=== PATIENT | male | born 1970 | race Caucasian/White ===

== ENCOUNTER → 2023-04-06 | Outpatient (CLI) | payer OTHER, SELFPAY ==
--- NOTE | 2023-04-06 13:41 | VDLE_ITS ---
Reason For Study: RLE R/O DVT RIGHT LEFT GSV is normal. CFV is compressible, spontaneous, phasic, CFV is compressible, spontaneous, phasic, competent, and demonstrates normal competent and demonstrates normal augmentation. augmentation. FV is compressible, spontaneous, phasic, competent and demonstrates normal augmentation. POP V is compressible, spontaneous, phasic, competent and demonstrates normal augmentation. T/P Trunk is compressible. PTV is compressible. RT PerV is compressible. Procedure This is a venous duplex using B-mode, color flow and spectral Doppler. Exam performed in department. The exam was diagnostic. A preliminary report was called and/or faxed to SIMIN BRICE office. VL/Venous Duplex US, Unilateral Interpretation Summary There is no evidence of right lower extremity deep vein thrombosis. Right great saphenous vein appears patent and compressible segmentally. Normal flow patterns left common f emoral vein Ordering Physician: Ariel Brice Referring Physician: Ariel Brice Performed By: Leander Hoyt RVT
== END | disposition home or self-care (01) ==
PROVIDERS: PCP Nurse Practitioner Family; Referring Provider Nurse Practitioner Family; Visit Provider Nurse Practitioner Family
DX: M79.89 Other specified soft tissue disorders (principal)
CPT/HCPCS: 93971

== ENCOUNTER 2023-06-03 05:58 | Day surgery (SDC) | payer OTHER, SELFPAY ==
[2023-06-03] MEDS: Lactated Ringers 1,000 ML 15 ML IV (06:25)
[2023-06-03 06:31] VITALS: BP 128/77; PULSE 84; RESP 18; TEMP 36.6; O2SAT 96; BMI 30.4
--- NOTE | 2023-06-03 06:47 | PCM.HP.STD ---
HPI - General HPI Narrative JEWELS HEDRICK, is a 53 M who presents for right knee arthroscopy partial medial meniscectomy and chondroplasty. no changes to h and p. Ok to proceed. narcotic counselling, rab. right knee marked. no further questions. MR#: [id number] Acct: [id number] Name: JEWELS HEDRICK Rep #: [id number] : 1970 Provider: Dr. Sushil Reyes MD Age/Sex: 53/M [place] [facility] [place] Status: Signed Intake Vital Signs 05/05/2314:12 Height 5 ft 7 in Weight: 200 lb BMI 31.3 Intake Visit Reasons: RIGHT LEG Chief Complaint: right knee Accompanied by: Is patient in pain?: Yes Pain scale (1-10): 3 Allergies No Known Allergies Allergy (Unverified 05/05/23 14:13) Medications lisinopril 20 mg-hydrochlorothiazide 25 mg tablet tab PO 05/05/23 [History Confirmed 05/05/23] meloxicam 15 mg tablet mg PO 05/05/23 [History Confirmed 05/05/23] metformin 1,000 mg tablet mg PO 05/05/23 [History Confirmed 05/05/23] sildenafil (pulm.hypertension) 20 mg tablet mg PO 05/05/23 [History Confirmed 05/05/23] simvastatin 40 mg tablet mg PO 05/05/23 [History Confirmed 05/05/23] tirzepatide 5 mg/0.5 mL subcutaneous pen injector (Mounjaro) mg subcut 05/05/23 [History Confirmed 05/05/23] PFSH Medical History (Updated 05/05/23 @ 14:37 by Sushil Reyes MD) Osteoarthritis of right knee Tear of medial meniscus of right knee Social History (Updated 05/05/23 @ 14:14 by María Burt) Smoking Status: Current every day smoker tobacco type: cigarettes Years smoked: 20 alcohol intake: current alcohol intake frequency: a few times a month HPI RIGHT LEG Details: This documentation accurately reflects the service provided and the decisions made by me, Dr. Sushil Reyes MD 05/05/23 1412. Part of today?s visit was documented by [ ], acting as scribe. JEWELS HEDRICK is a 53 year old M here today for january riding side by sides, felt 'something' so [facility] did a cortisone injection, then the next day putting shorts on and heard a pop so had an MRI and an ekg and high a1c.on felicia now. now onto 8.4. here with his . was going to have an knee arthroscopy - wanted to wait until his a1c was 7.5. right knee. no problems before this. aches once in a while. painful on the medial side. somewhat superiorly. tried meloxicam that seemed to help. once a day. no help with the cortisone injection - twisted. mri was back in february. had injection then the mri. mri was after the twisting injury. 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 Ortho Exam General General: Yes no acute distress Neurologic: Yes alert and Yes oriented x3 Psychologic: Yes reasonable and appropriate Right Knee Skin/Wound: Yes CDI, No erythema, No ecchymosis and No swelling Knee ROM: Yes ROM-Flexion 0-140 Examination: Yes Med jt line tenderness, No Lat jt line tenderness, No TTP inf pole patella, No Crepitus, Yes Pain with flexion, No Pain with extention, Yes Viri's Test, No TTP Patellar tendon, No TTP Tibial tubercle, No TTP Pes Anserine and No Illiotibial band tenderness Quad Atrophy: No Stability: NML: Anterior Drawer, NML: Sobeida, NML: Posterior Drawer, NML: Valgus 0, NML: Valgus 30, NML: Varus 0 and NML: Varus 30 Patella Translation: 2 Apprehension with Lateral Translation: No Patellar Tilt Normal: Yes Patella Grind: No KNEE: slight varus alignment, normal gait, nvi, no hip pain, no effusion. Left Knee Patella Translation: 2 Supplemental Info I reviewed the MRI and x-rays personally. Agree with the report. The conclusion from the radiologist from the MRI taken 03/23/2023 conclusion 1. Complex detached medial meniscus tear with a dominant trizonal radial component at the posterior horn and moderate extrusion. 2. Full-thickness cartilage loss along the lateral trochlea with penetrating chondral erosion. 3. Area of full-thickness cartilage loss with osteoedema along the weightbearing medial femoral condyle measuring 8 x 14 mm 4. Grade 1 MCL sprain 5. Small ossified bodies in the anterior joint recess measuring up to 6 mm Coding Level of Care Code Off vis,new,level 3 Diagnoses Tear of medial meniscus of right knee S83.241A Osteoarthritis of right knee M17.11 Assessment and Plan Assessment and Plan (1) Tear of medial meniscus of right knee: Status: Acute Plan: 53-year-old man right knee pain twisting injury MRI evidence of the medial meniscus tear as well as some areas of full-thickness chondral loss on the MRI however the joint space looks well-maintained on the standing radiographs. Patient can try rest ice anti-inflammatories repeat cortisone injections viscosupplementation bracing physical therapy activity modifications doing nothing. The patient is interested in knee surgery. That would be in the form of right knee arthroscopy partial medial meniscectomy and chondroplasty. I did warn the patient that this would not likely help for the symptoms that are coming from the arthritis and may lead to earlier degeneration of the cartilage. Would not likely to be doing any sort of meniscus repair work to repair a root tear since pre existing OA, but may benefit in terms of the medial joint line tenderness and mechanical symptoms from a partial meniscectomy. If this is no help, could consider arthroplasty options. In addition the patient blood glucose is little bit elevated that is coming down with treatment with Mounjaro. No other medical problems besides HTN, but that would increase risks none the less. I did warn the patient that increased blood sugars and diabetes can increase the risk of infection and other complications. He understands and wishes to go ahead with the operation. We will try to do this before the end of the year is his goal. Discussed recovery 2 weeks on crutches and usually 6 weeks for return to full activitiy. Pros and cons risks and benefits were discussed with the patient including but not limited to infection, pain, stiffness, bleeding, damage to surrounding structures, neurovascular injury, recurrence or retear, failure or wear of hardware or fixation, instability, fracture, deep vein thrombosis and pulmonary embolism, anesthetic risks, , patient dissatisfaction, need for further surgery and other risks. Patient understood and wished to proceed with surgery, and signed the informed consent documentation. [facility] Medical History (Updated 05/25/23 @ 13:12 by Cinthia Estevez) Arthritis Diabetes Dietary restriction High cholesterol Hypertension Osteoarthritis of right knee Smoker Tear of medial meniscus of right knee Wears glasses Home Medications lisinopril 20 mg-hydrochlorothiazide 25 mg tablet 1 tab PO DAILY 05/05/23 [History Last Taken Unknown] meloxicam 15 mg tablet 15 mg PO DAILY 05/05/23 [History Last Taken Unknown] metformin 1,000 mg tablet 1,000 mg PO BID 05/05/23 [History Last Taken Unknown] sildenafil (pulm.hypertension) 20 mg tablet 20 mg PO Q24H PRN sexual activity 05/05/23 [History Last Taken Unknown] simvastatin 40 mg tablet 40 mg PO DAILY 05/05/23 [History Last Taken Unknown] tirzepatide 5 mg/0.5 mL subcutaneous pen injector (Mounjaro) 5 mg subcut .QWK 05/05/23 [History Last Taken Unknown] Allergy/AdvReac Type Severity Reaction Status Date / Time No Known Allergies Allergy Verified 06/03/23 06:30 Social History (Updated 05/05/23 @ 14:14 by María Burt) Smoking Status: Current every day smoker tobacco type: cigarettes alcohol intake: current alcohol intake frequency: a few times a month Vital Signs Vital Signs Vital Signs: 06/03/23 06:31 06/03/23 06:31 Temperature 97.8 F Temperature Source Temporal Pulse Rate 84 Respiratory Rate 18 Respiratory Pattern Normal Blood Pressure 128/77 H Blood Pressure Mean 94 Blood Pressure Source Monitor Blood Pressure Position Sitting Blood Pressure Location Right Arm Pulse Ox 96 Oxygen Delivery Method Room Air Weight Weight: 194 lb 0.108 oz Body Mass Index (BMI) 30.4
[2023-06-03 07:01] LABS: Bedside Glucose 175 mg/dL (74-106)
[2023-06-03] MEDS: Cefazolin 2 GM in 0.9% Normal Saline (100mL Bag) 100 ML IV (07:34)
[2023-06-03] MEDS: Epinephrine (1 mg/ml) 1 MG/ML VIAL (08:14)
[2023-06-03] MEDS: Bupivacaine 0.25% 30 ML Vial (08:33)
--- NOTE | 2023-06-03 08:38 | PCM.OPRPT ---
Problems Associated Problem List Diagnoses (1) Osteoarthritis of right knee: (2) Tear of medial meniscus of right knee: Report of Operation Date of Procedure: 06/03/23 Pre-Operative Diagnosis: right knee medial meniscus tear, OA Post-Operative Diagnosis: same Surgery/Procedure Performed:: right knee arthroscopy, partial medial meniscectomy, chondroplasty Surgeon: Sushil Reyes Type of Anesthesia: General and Local Anesthesiologist: Gualberto Lynn Estimated Blood Loss (mL): 25 Description of Procedure: Patient brought to the operating room theater. Placed supine on the table. 2 g IV Ancef administered prior to the start of the procedure. Stress positioner to the patient's right side. All bony prominences padded. General anesthesia induced. SCD on the nonoperative leg. 30 inch tourniquet applied to the right thigh appropriately padded. Lower extremity prepped and draped in the usual sterile fashion allowing over 3 minutes drying time prior to draping. Preoperative timeout performed to confirm the site patient and the surgery. Leg and elevated tourniquet inflated to 250 mmHg. Made standard anterolateral and anteromedial arthroscopy portals. Did a full diagnostic arthroscopy. No loose bodies in the gutters. There is mild synovitis anteriorly at the knee especially anterolaterally. I debrided this there was the calcified bodies that were noted on the MRI that I removed from the anterior lateral joint space. ACL and PCL appeared normal. Cartilage of the undersurface patella grade 1 changes at the area of the trochlea in the mid aspect there was a 2.5 cm x 2.5 cm area of 3-4 grade loss of the cartilage they are debrided to smooth margins. Entered the lateral compartment. There was 1 very small area grade 2 changes medial side of LFC, this is 5 mm x 5 mm otherwise normal cartilage and there was 1 small radial tear at the anterior horn lateral meniscus that again I debrided for removal of about 3% total surface area of the lateral meniscus otherwise lateral meniscus was normal stable to probing. I then entered the medial compartment there was longitudinal areas of full-thickness grade 4 cartilage loss on the femoral side. On the tibial side grade 1-2 changes. As was described on the MRI there is a trizonal radial tear at the posterior horn MM. I debrided this to smooth margins. There is no role for a root tear or [id number] repair given the complex nature of the tear separation of the tear as well as the full-thickness cartilage loss there in that compartment and patient age. Arthroscopy pictures taken and saved throughout the case. Case terminated. Tourniquet let down and hemostasis achieved. Portals closed with 3-0 Monocryl suture. Quarter percent bupivacaine instilled around the portal sites. Wounds cleaned with wet and dry dressing knee thoroughly irrigated. Steri-Strips followed by Adaptic 4 x 4 gauze ABD dressing and Lloyd wrap loosely wrapped around the knee was then placed. Patient woken up from the general anesthetic transferred off the operating table and taken to postanesthetic care unit in stable condition. All sponge needle instrument counts were correct no complications plan to the patient weightbearing as tolerated range of motion as tolerated crutches for 1 to 2 weeks as needed follow-up in the office in 2 days time. cpt 56021?and [id number] Complications none Admit VTE Documentation VTE Present on Admission: No VTE Mechan Device Prophylaxis: SCD's VTE Pharm Prophylaxis ordered?: No Reason prophylaxis not ordered:: Treatment Not Indicated Procedures Musculoskeletal 20xxx-29xxx: Other Procedure See Report
[2023-06-03 08:50] VITALS: BP 108/71; BP 128/77; PULSE 81; RESP 16; TEMP 36.3; O2SAT 96
[2023-06-03 08:55] VITALS: BP 122/78; BP 128/77; PULSE 82; RESP 16; O2SAT 95
--- NOTE | 2023-06-03 08:57 | DCINST_ITS ---
Discharge Instructions Diet Discharge Diet: No restrictions Activity Discharge Activity: Use Crutches Ice area for (Minutes): 10 Weight Bearing Status: Weight bearing as tolerated Keep extremity elevated above heart level: Operative Extremity Dressing / Incision Call your doctor if your incision/area has: Continuous Slow Oozing, Sudden Increased Bleeding, Increased Pain/ Swelling, Increased Redness, Foul Smelling Discharge and Swelling at the incision site Remove Dressing in: leave in place till F/U Follow Up Care Please Follow Up With: Sushil Reyes MD When: 2 days Test Results: Test results from this visit will be discussed in further detail at your follow- up appointment, if applicable. Discharge Plan Admission Attending Provider: Sushil Reyes Primary Care Provider: Ariel Heaton NP Discharge Orders/Prescriptions Prescriptions: New oxycodone-acetaminophen [Endocet] 5-325 mg tablet 1 tab PO Q4H MDD 6 PRN (Reason: pain) 5 Days Qty: 20 0RF No Action Mounjaro 5 mg/0.5 mL pen injector 5 mg subcut .QWK simvastatin 40 mg tablet 40 mg PO DAILY Patient Comments: TAKE 1 TABLET BY MOUTH AT BEDTIME metformin 1,000 mg tablet 1,000 mg PO BID Patient Comments: TAKE 1 TABLET BY MOUTH TWICE DAILY WITH MEALS lisinopril-hydrochlorothiazide 20-25 mg tablet 1 tab PO DAILY sildenafil (pulm.hypertension) 20 mg tablet 20 mg PO Q24H PRN (Reason: sexual activity) Patient Comments: TAKE 1 TABLET BY MOUTH ONCE DAILY NEEDED meloxicam 15 mg tablet 15 mg PO DAILY Referrals / Follow Up: Sushil Reyes MD [Med Staff - Active Staff] - Ariel Heaton NP, [facility] [employer] [Primary Care Provider] - Disposition Disposition (needs filled in before D/C Order can be placed): Home, Self Care
[2023-06-03 09:00] VITALS: BP 103/80; BP 128/77; PULSE 84; RESP 16; O2SAT 96
[2023-06-03 09:07] VITALS: BP 114/64; BP 128/77; PULSE 89; RESP 16; TEMP 36.1; O2SAT 97
[2023-06-03 09:25] LABS: Bedside Glucose 144 mg/dL (74-106)
== END 2023-06-03 09:47 | disposition home or self-care (01) ==
LOC: SDC 06:01 → AC 06:01
PROVIDERS: PCP Nurse Practitioner Family; Referring Provider Orthopaedic Surgery Sports Medicine; Visit Provider Orthopaedic Surgery Sports Medicine
PROC: (CPT 29870; principal; 2023-06-03 07:10)
DX: S83.241A Other tear of medial meniscus, current injury, right knee, initial encounter (principal); E11.9 Type 2 diabetes mellitus without complications; X50.1XXA Overexertion from prolonged static or awkward postures, initial encounter; M17.11 Unilateral primary osteoarthritis, right knee; I10 Essential (primary) hypertension; E78.00 Pure hypercholesterolemia, unspecified; Z79.1 Long term (current) use of non-steroidal anti-inflammatories (NSAID); F17.210 Nicotine dependence, cigarettes, uncomplicated; Z79.84 Long term (current) use of oral hypoglycemic drugs; Z79.899 Other long term (current) drug therapy
CPT/HCPCS: 29881; 01400; 82962; J7120; J2405

== ENCOUNTER 2023-06-17 15:53 | Outpatient (RCR) | payer OTHER, SELFPAY ==
--- NOTE | 2023-06-17 17:32 | HP.PTEVAL ---
Patient's Visit Information Visit Information Visit Information: JEWELS HEDRICK is a 53 year old M referred to Physical Therapy by Dr. Sushil Reyes MD with a diagnosis of UNILATERAL PRIMARY OSTEOARTHRITIS ,RIGHT KNEE , TEAR OF MEDIAL MENISCUS. Date of Evaluation: 06/17/23 Physical Therapist: Paul Avelar PT, Cert MDT, OCS Visit Plan Frequency: 2x /Week Duration: 2-3 WEEKS Plan: PT INTERVETIONS FLEXABLITY HAMSTRINGS /QUADS, STRENGTHENING QUADS/HAMS/HIP ,BIKE AND FUNCTIONAL STRENGTHENING Subjective Subjective: This 53 y/o male presents to physical therapy with s/p arthroscopic knee medial meniscectomy and chondroplasty on Jun 03 at [facility] . Patient d/c to home few days. Patient had MRI showed meniscus tear. Patient seen Dr 06/05 . Doing well . Patient has some DJD medial aspect. RTD 06/18/23. Patient some pain medial knee edema has subsided. Patient aggravating factors extended walking ,some difficulty with steps and have not been squatting kneeling. Denies paresthesia/tingling . Sleeping okay at night. Patient condition affects QOL and function. 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 Pain Right Knee: Pain Intensity (Out of 10): 4 Pain Intensity Range: 10 Objective Objective: POSTURE: mild forward posture GAIT: reciprocal pattern mild decrease stance EDEMA: absent AROM: supine knee flexion 0-130 degrees MMT: quads/hams/hip flexion 4/5 ,ankle FLEXABILITY: mod tight Balance/Special Test Scores Lower Extremity Functional Score: 56 Goals Goal 1:: Patient to be I with HEP knee Goal Time Frame: 2-4 Weeks Goal 2:: Patient to improve functional strength without pain to modify squat and kneel for housework tasks Goal Time Frame: 2-4 Weeks Goal 3:: Patient to demonstrate 75% improvement with increase function. Goal Time Frame: 4-6 Weeks Goal 4:: Patient to improve LFES score by 5-points to improve function and QOL Goal Time Frame: 2-4 Weeks Rehabilitation Potential Physical Therapy Diagnosis: This patient underwent s/p arthroscopic medial meniscectomy and chondroplasty with decrease functional strength for activity for a progression of strengthening ex's thus benefit from skilled PT Rehabilitation Potential: Good Anticipated Interventions Patient/Client Instruction: Educate patient on: Condition and Plan of Care For the Purpose of:: To decrease pain, To increase ROM, To improve muscle performance and motor function, To improve ability to perform ADL's, To increase tolerance to activity/condition/position, To improve ability of physical actions for home/community/work/leisure, To improve gait and locomotor functions, To improve health of tissue, To decrease soft tissue restriction, To increase flexibility/ROM and To prevent re-injury Therapeutic Exercise to Include: Strength training, Endurance training, Balance training, Postural training, Flexibilty training and Active ROM For the Purpose of:: To decrease pain, To increase ROM, To improve muscle performance and motor function, To increase tolerance to activity/condition/position, To improve ability of physical actions for home/community/work/leisure, To improve health of tissue, To decrease soft tissue restriction, To increase flexibility/ROM, To reduce risk of recurrence, To prevent re-injury and To improve tolerance to ADL's Text: Thank you for the opportunity to evaluate your patient. For Medicare and Medicare HMO plans, please review the plan of care and approve it. It will need to be FAXED BACK to us at [phone] for Medicare purposes. For Medicare only, by signing this I certify the plan of care. Please let me know if there are questions or concerns regarding this plan of care. Physician Signature: Date:
--- NOTE | 2023-10-12 11:12 | HP.PT.NRP ---
Patient Information Patient Information: JEWELS HEDRICK was seen in my office for initial evaluation on 06/17/23. The following Plan of Care was established for this patient: POC Established Initial Frequency: 2x /Week Initial Duration: 2-3 WEEKS Anticipated Interventions Patient/Client Instruction: Educate patient on: Condition and Plan of Care For the Purpose of:: To decrease pain, To increase ROM, To improve muscle performance and motor function, To improve ability to perform ADL's, To increase tolerance to activity/condition/position, To improve ability of physical actions for home/community/work/leisure, To improve gait and locomotor functions, To improve health of tissue, To decrease soft tissue restriction, To increase flexibility/ROM and To prevent re-injury Therapeutic Exercise to Include: Strength training, Endurance training, Balance training, Postural training, Flexibilty training and Active ROM For the Purpose of:: To decrease pain, To increase ROM, To improve muscle performance and motor function, To increase tolerance to activity/condition/position, To improve ability of physical actions for home/community/work/leisure, To improve health of tissue, To decrease soft tissue restriction, To increase flexibility/ROM, To reduce risk of recurrence, To prevent re-injury and To improve tolerance to ADL's Last Seen Last Seen: This patient was last seen in our office . Pertinent comments regarding their Physical therapy will appear below: Patient was seen for PT Evaluation for arthroscopic knee for HEP and D/C At this point I will be discontinuing this patient from physical therapy. I would be happy to see this patient again in the future if found appropriate by the physician. Thank you! Paul Avelar, PT, Cert MDT, OCS Balance/Gait/Functional tests Balance/Special Test Scores Lower Extremity Functional Score: 56
== END 2023-06-17 19:00 | disposition home or self-care (01) ==
LOC: PT 15:53
PROVIDERS: PCP Nurse Practitioner Family; Visit Provider Orthopaedic Surgery Sports Medicine
DX: S83.241D Other tear of medial meniscus, current injury, right knee, subsequent encounter (principal); M17.11 Unilateral primary osteoarthritis, right knee
CPT/HCPCS: 97110; 97162